=== PATIENT | female | born 1960 | race Caucasian/White ===

== ENCOUNTER → 2021-10-22 | Outpatient (CLI) | payer BC, MEDICARE | LOC: M RAD 08:22 | PROVIDERS: ATTEND Nurse Practitioner Family | DX: D49.89 Neoplasm of unspecified behavior of other specified sites (principal); D72.819 Decreased white blood cell count, unspecified; R93.7 Abnormal findings on diagnostic imaging of other parts of musculoskeletal system | CPT/HCPCS: 78306; A9503 ==